=== PATIENT | male | born 1960 ===

== ENCOUNTER 2021-03-08 12:02 | Day surgery (SDC) | payer OTHER | END 2021-03-08 17:05 | disposition home or self-care (01) | LOC: AMB-ENDOS 12:02 | PROVIDERS: ATTEND Surgery | DX: K63.5 Polyp of colon (principal); K64.8 Other hemorrhoids; Z20.822 Contact with and (suspected) exposure to COVID-19 ==

== ENCOUNTER 2023-08-21 11:01 | Emergency (ER) | payer OTHER ==
[~2023-08-21] VITALS: Ht 172.7 cm; Wt 92.5 kg
[2023-08-21] MEDS ORDERED: ADULT LOW DOSE81 M1 PO (11:29)
[2023-08-21] MEDS ORDERED: TAMS0.4C PO (11:29)
[2023-08-21] MEDS ORDERED: CRESTOR10 MG PO (11:29)
[2023-08-21] MEDS ORDERED: GLUMETZA1000 MG PO (11:29)
[2023-08-21] MEDS ORDERED: TRELSTAR11.25 M1 IM (11:30)
[2023-08-21] MEDS ORDERED: SIMPONI50 MG/0.5 SQ (11:30)
[2023-08-21] MEDS ORDERED: DICLOFENAC POTA50 MG PO (14:32)
== END 2023-08-21 14:45 | disposition home or self-care (01) ==
LOC: ER 11:01
DX: S20.219A Contusion of unspecified front wall of thorax, initial encounter (principal); W19.XXXA Unspecified fall, initial encounter; Y93.89 Activity, other specified; Y92.89 Other specified places as the place of occurrence of the external cause; Y99.8 Other external cause status; E11.9 Type 2 diabetes mellitus without complications; Z79.84 Long term (current) use of oral hypoglycemic drugs; Z88.1 Allergy status to other antibiotic agents